=== PATIENT | male | born 1940 | race Caucasian/White ===

== ENCOUNTER 2018-11-18 06:39 | Day surgery (SDC) | payer BC ==
[~2018-11-18] VITALS: Ht 161.3 cm; Wt 97.0 kg
[2018-11-18] VITALS (12 sets, daily range): BP systolic 99–138; BP diastolic 66–89; PULSE 54–62; RESP 16–21; Ht 161.3 cm; Wt 97.0 kg
[~2018-11-18 06:39] MED LIST: ATOR10TA65 ORAL; BISO5TAB21 ORAL; DOCU-211 ORAL; VALS1TAB74 ORAL
[2018-11-18] MEDS ORDERED: SOD CHLORIDE 0.45% 1,000 ML IV ONE (07:30)
[2018-11-18] MEDS ORDERED: DIAZEPAM 5 MG TAB PO ONE (07:30)
[2018-11-18] MEDS ORDERED: FAMOTIDINE 20 MG TAB PO ONE (07:30)
[2018-11-18] MEDS ORDERED: DIPHENHYDRAMINE 50 MG CAP PO ONE (07:30)
[2018-11-18] MEDS ORDERED: FENTAnyl 50 MCG/ML VIAL ONE (08:48)
[2018-11-18] MEDS ORDERED: HEPARIN 1000 UNITS/ML 10 ML INJ ONE (08:48)
[2018-11-18] MEDS ORDERED: VERAPAMIL 5 MG INJ ONE (08:48)
[2018-11-18] MEDS ORDERED: LIDOCAINE 1% (MDV) 20 ML INJ ONE (08:48)
[2018-11-18] MEDS ORDERED: NITROGLYCERIN (IC) 100 MCG/ML INJ ONE (08:48)
[2018-11-18] MEDS ORDERED: MIDAZOLAM 1 MG/ML 2 ML INJ ONE (08:48)
[2018-11-18] MEDS ORDERED: IODIXANOL LOCM 100 ML BTL ONE (08:48)
[2018-11-18] MEDS ORDERED: SOD CHLORIDE 0.9% 500 ML ONE (10:32)
[2018-11-18] MEDS ORDERED: SOD CHLORIDE 0.9% 1,000 ML IV SCH (10:34)
--- NOTE | 2018-11-18 10:34 | SIPON ---
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
[2018-11-18] MEDS ORDERED: AL HYDROX/MG HYDROX/SIMETH 30 ML CUP PO PRN (11:00)
[2018-11-18] MEDS ORDERED: morphine 2 MG INJ IV PRN (11:00)
[2018-11-18] MEDS ORDERED: ACETAMINOPHEN 325 MG TAB PO PRN (11:00)
[2018-11-18] MEDS ORDERED: ONDANSETRON 4 MG INJ IV PRN (11:00)
--- NOTE | 2018-11-18 15:53 | RADRPT ---
Vent Rate: 60 bpm RR Interval: 992 msec GA Interval: 192 msec QRS Duration: 93 msec QT Interval: 426 msec QTC Interval: 428 msec P-R-T [place]: 64 - -31 - 47 degrees Sinus rhythm...normal P axis, V-rate 50- 99 Left axis deviation...QRS axis (-30,-90) Electronically Signed By: Tripp Negron
--- NOTE | 2018-11-21 06:37 | CONS ---
DATE OF ADMISSION: 11/18/2018 DATE OF CONSULTATION: 11/18/2018 TYPE OF CONSULTATION: Cardiology. REASON FOR CONSULTATION: 1. Left heart catheterization. 2. Coronary angiography. 3. Aortic root angiography. 3. Moderate conscious sedation. ATTENDING PHYSICIAN: Michael Bhatia MD REFERRING PHYSICIAN: Dr. Marie. INDICATION: Chest pain refractory to medical therapy with a CTA concerning for a high-grade stenosis. TYPE OF ANESTHESIA: Conscious and local. BRIEF HISTORY: Mr. Jesse Solano is a 78-year-old male with hypertension, dyslipidemia, coronary artery disease, who presented with complaints of substernal chest pain. The patient's current cardiac stress test showing anterior and inferior ischemia and subsequent cardiac CTA and I could not assess the exact degree of stenosis in the LAD. Therefore, the patient referred for left heart catheterization to assess for possibility of significant obstructive coronary artery disease lending to symptoms of chest pain and positive stress test findings. PROCEDURE: After informed consent was obtained, the patient was brought to the [facility] cardiac catheterization lab where his right radial area was prepped and draped in the usual sterile fashion. Lidocaine 2% was infiltrated in order to achieve adequate anesthesia. Using modified Seldinger technique, the radial artery was cannulated and a 6-Burkinan arterial sheath was placed. A 6-Burkinan JL3.5 catheter used to cannulate the left main coronary ostium. With contrast injection, mutiple views of the left coronary arterial system were obtained and the JL3.5 was removed over a guide wire. A JR4 was then used in attempt to cannulate the right coronary ostium and was unsuccessful. We then placed a pigtail catheter in the LV and checked the LVEDP pull back across the aortic valve and left aortic root. Aortic root angiography was then done to further identify where the patient's right coronary artery takeoff was. This also did not see anything in the right coronary cusp. Subsequently, at this time power injector and had a malfunction. It was elected to take an AL1 and we were able to find the ostium of the right coronary artery with an AL1 which was superior and very near the left cusp after which with contrast injection, multiple views of this right coronary artery were obtained. AL1 was removed and this completed the procedure. The patient's sheath was removed. TR band was applied. There were no noted complications. FINDINGS: 1. Coronary angiography. Left main 5.5 to 6 mm with an ostial 30% stenosis. Circumflex proximally is an ectatic vessel approximately 5 mm, with no significant focal stenoses. The circ proximally small caliber vessel and has no focal stenoses. There is an obtuse marginal that then bifurcates into 2 branches, each approximately 3 mm, also ectatic-appearing with no significant focal stenoses. There is a large osteophyte that bifurcates proximally, is very ectatic and then becomes a small caliber vessel, with no focal stenoses, up to 5 mm in size. LAD proximally is a 5mm vessel and has a focal area of stenosis in the proximal portion of the vessel up to approximately 40% to 50% and is very ectatic and rounds the apex. There is a proximal branching diagonal, also a 3.5 mm vessel, ectatic, with no significant focal stenoses. 3. The patient's right coronary artery proximally is a 5.5 mm vessel, has an ostial likely 40% stenosis with good catheter reflux, very ectatic vessel which then in the mid portion of the small caliber vessel, but has no focal stenoses. It is a dominant vessel and therefore gives off a 3 mm PDA. 4. A 3 mm PDA with a midbody 30% stenosis and a 2 mm posterolateral branch with no significant focal stenosis. 5. Measurement of left ventricular end-diastolic pressure of 20/22. No significant aortic stenosis by gradient. TOTAL FLUOROSCOPY TIME: 60 minutes. TOTAL CONTRAST: 140 mL. IMPRESSION: 1. Moderate nonobstructive coronary artery disease of very ectatic coronary artery vessels. 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 2. Elevated left heart filling pressures. 3. No significant focal stenosis or gradient. RECOMMENDATIONS: In light of procedure findings at this time, we would: 1. Maximize medical management. 2. Aggressive risk factor reduction. 3. The patient will be readmitted to same day surgery for post-catheterization cannula and continued management of presenting symptoms with probable discharge later this afternoon. ADDENDUM: The patient underwent aortic root angiography revealing the patient's match-[id number]-nash-she[place]wish band left but did not identify the patient's right coronary artery and right coronary cusp. Dictated By: MICHAEL SEGOVIA/EDBBIE Conf#: [id number] DID#: [id number] [facility]
== END 2018-11-18 14:00 | disposition home or self-care (01) ==
LOC: SDS 06:39
PROVIDERS: ATTEND Internal Medicine
DX: I25.10 Atherosclerotic heart disease of native coronary artery without angina pectoris (principal); I10 Essential (primary) hypertension
CPT/HCPCS: 71045; 80053; 80061; 85025; 85610; 85730; 93005; 93458; C1887; C1894; J1644; J2250; J3010; J7040; Q9967; Z7610